=== PATIENT | male | born 1990 | race Hispanic/Latino ===

== ENCOUNTER 2017-02-28 09:07 | Emergency (ER) | payer SELFPAY ==
--- NOTE | 2017-02-28 10:05 | RAD ---
FOUR VIEWS OF THE LEFT KNEE: COMPARISON: None. HISTORY: Left knee pain that started yesterday. The patient fell to the ground off of roof. FINDINGS: Four views left knee show no evidence of acute fracture or dislocation. No knee effusion is seen. There is a radiopaque foreign body adjacent to the fibula laterally. This has the appearance of a b roken sewing needle. IMPRESSION: 1. No evidence of acute osseous abnormality. 2. Radiopaque foreign body in the lateral soft tissues. This may be acute or chronic. POS: [facility]
== END 2017-02-28 10:18 | disposition home or self-care (01) ==
LOC: ERS 09:07
DX: S83.92XA Sprain of unspecified site of left knee, initial encounter (principal); F17.210 Nicotine dependence, cigarettes, uncomplicated; W22.8XXA Striking against or struck by other objects, initial encounter